=== PATIENT | male | born 1940 | race Caucasian/White ===

== ENCOUNTER 2021-11-27 14:38 | Inpatient (IN) ==
[2021-11-27 15:33] LABS: Basophils % 0.5 %; Eosinophils # 0.1 K/mcL (0.0-0.6); Eosinophils % 2.3 %; Hematocrit 33.9 % (37.5-50.1); Immature Granulocytes % 0.2 % (0-4); Lymphocytes # 1.3 K/mcL (0.6-4.6); Lymphocytes % 23.8 %; Mean Corpuscular HGB Conc 35.4 g/dL (31.6-35.5); Mean Corpuscular Volume 87.6 fL (83.0-100.0); Mean Platelet Volume 8.9 fL (9.4-12.4); Monocytes # 0.5 K/mcL (0.0-1.3); Monocytes % 9.2 %; Neutrophils # 3.5 K/mcL (1.6-8.9); Platelet Count 197 K/mcL (140-400); Red Blood Count 3.87 M/mcL (4.19-5.50); Red Cell Distribution Width 12.4 % (11.5-14.5); White Blood Count 5.5 K/mcL (4.3-11.1)
[2021-11-27 15:42] LABS: BUN/Creatinine Ratio 11 (6-26); Blood Urea Nitrogen 16 mg/dL (8-23); Calcium 8.7 mg/dL (8.6-10.3); Carbon Dioxide 21 mEq/L (23-29); Chloride 103 mEq/L (98-107); Glucose 132 mg/dL (70-105); Osmolality,Calculated 279 (280-300); Sodium 133 mEq/L (136-145); Troponin I < 0.03 ng/mL (< 0.04)
[2021-11-27 16:26] LABS: INR 1.1; Prothrombin Time 12.2 Seconds (9.4-12.1)
[2021-11-27] MEDS ORDERED: Morphine Sulfate 2 MG/ML SYRINGE IVP ONE ×2 (16:53→17:06)
[2021-11-27] MEDS ORDERED: Iopamidol - 370 500 ML MLS IVP ONE (16:54)
[2021-11-27 18:20] LABS: VBG HCO3 24 mEq/L (21-27); VBG PCO2 47 mmHg (41-51); VBG PH 7.32 pH Units (7.32-7.42); VBG PO2 67 mmHg (25-50)
[2021-11-27] MEDS ORDERED: methylPREDNISolone 125 MG/2 ML VIAL IVP ONE (18:30)
[2021-11-27] MEDS ORDERED: Ondansetron 4 MG/2 ML VIAL IVP ONE (18:55)
[2021-11-27] MEDS ORDERED: Ampicillin/Sulbactam 1,500 MG in 0.9 % Sodium Chloride Mini Bag 100 ML IVPB ONE (20:15)
[2021-11-28] MEDS ORDERED: Naloxone 0.4 MG/ML INJ IVP PRN (00:41)
[2021-11-28] MEDS ORDERED: Acetaminophen 325 MG TABLET PO PRN (00:41)
[2021-11-28] MEDS ORDERED: *HR* OxyCODONE Immed Rel 5 MG TABLET PO PRN (00:41)
[2021-11-28] MEDS ORDERED: Melatonin 3 MG TABLET PO PRN (00:41)
[2021-11-28 05:45] LABS: Hematocrit 35.4 % (37.5-50.1); Hemoglobin 12.2 g/dL (12.9-16.9); Immature Granulocytes % 0.3 % (0-4); Lymphocytes # 0.7 K/mcL (0.6-4.6); Lymphocytes % 9.1 %; Mean Corpuscular HGB Conc 34.5 g/dL (31.6-35.5); Mean Corpuscular Hemoglobin 30.3 pg (28.0-33.3); Mean Corpuscular Volume 87.8 fL (83.0-100.0); Monocytes # 0.1 K/mcL (0.0-1.3); Monocytes % 1.8 %; Neutrophils # 6.7 K/mcL (1.6-8.9); Platelet Count 212 K/mcL (140-400); Red Blood Count 4.03 M/mcL (4.19-5.50); Red Cell Distribution Width 12.5 % (11.5-14.5); Segmented Neutrophils % 88.8 %; White Blood Count 7.6 K/mcL (4.3-11.1)
[2021-11-28 06:07] LABS: Calcium 8.8 mg/dL (8.6-10.3); Magnesium 1.6 mg/dL (1.6-2.6); Phosphorous 5.5 mg/dL (2.7-4.5); Potassium 4.3 mEq/L (3.5-5.1)
[2021-11-28] MEDS: Piperacillin/Tazobactam 3.375 GM in 0.9 % Sodium Chloride Mini Bag 100 ML IVPB SCH ×3 (09:36→23:17)
[2021-11-28 13:06] LABS: Uric Acid 7.6 mg/dL (2.3-7.6)
[2021-11-28 13:17] LABS: Immature Reticulocyte % 5.8 % (11.0-38.0); Retculocyte # 0.05 M/mcL (0.05-0.10); Reticulocyte % 1.3 % (1.6-2.8)
[2021-11-28 13:20] LABS: Thyroid Stimulating Hormone 1.033 mcIU/mL (0.340-5.600)
[2021-11-28 13:31] LABS: Vitamin B12 255 pg/mL (250-1100)
[2021-11-28 14:37] LABS: HIV-1&2 Antibody & p24 Ag Nonreactive (Nonreactive)
[2021-11-28] MEDS ORDERED: Dextrose Gel 15 GM/37.5 ML TUBE PO PRN ×2 (14:45)
[2021-11-28] MEDS ORDERED: 0.9 % Sodium Chloride 1,000 ML IVC SCH (14:45)
[2021-11-28] MEDS ORDERED: D5% in Water 1,000 ML IVC PRN (14:45)
[2021-11-28] MEDS ORDERED: *HR* Dextrose 50 % in Water (Syg) 50 ML SYRINGE IVP PRN (14:45)
[2021-11-28] MEDS ORDERED: Nitroglycerin 0.4 MG TAB.SUBL SL PRN (14:48)
[2021-11-28] MEDS ORDERED: 0.9 % Sodium Chloride 500 ML IVC SCH (15:00)
[2021-11-28] MEDS: allopurinoL 100 MG TABLET PO SCH (15:09)
[2021-11-28] MEDS ORDERED: carvediloL 6.25 MG TABLET PO SCH (17:00)
[2021-11-28] MEDS: Insulin LISPRO 300 UNITS/3 ML VIAL SUBQ SCH (17:12)
[2021-11-29] MEDS: Insulin LISPRO 300 UNITS/3 ML VIAL SUBQ SCH ×3 (07:39→17:42)
[2021-11-29] MEDS ORDERED: carvediloL 6.25 MG TABLET PO SCH (09:00)
[2021-11-29] MEDS: Aspirin 81 MG TAB.CHEW PO SCH (09:28)
[2021-11-29] MEDS: Piperacillin/Tazobactam 3.375 GM in 0.9 % Sodium Chloride Mini Bag 100 ML IVPB SCH ×2 (09:28→17:24)
[2021-11-29] MEDS: allopurinoL 100 MG TABLET PO SCH (09:29)
[2021-11-29] MEDS: Cholecalciferol (D-3) 1,000 UNIT (25MCG) TABLET PO SCH (09:29)
[2021-11-29] MEDS: lisinopriL 20 MG TABLET PO SCH (09:29)
[2021-11-29] MEDS: amLODIPine 5 MG TABLET PO SCH (09:38)
[2021-11-29] MEDS: Cyanocobalamin (B-12) 1,000 MCG/ML VIAL SQ SCH (09:39)
[2021-11-29] MEDS ORDERED: Lidocaine -MPF 2% 5 ML VIAL ONE (11:40)
[2021-11-29] MEDS ORDERED: Ondansetron 4 MG/2 ML VIAL ONE (11:40)
[2021-11-29] MEDS ORDERED: *HR* Propofol 200 MG/20 ML VIAL IVP ONE (11:41)
[2021-11-29] MEDS ORDERED: Lidocaine HCL 4 ML Topical Solution (Laryng-O-Jet Kit Sterile Pak) TP ONE (11:43)
[2021-11-29] MEDS ORDERED: *HR* FentaNYL (PF) 100 MCG/2 ML VIAL ONE (11:54)
[2021-11-29] MEDS ORDERED: Gadolinium Contrast Agent (WT Based) IV PRN (14:23)
[2021-11-29 16:52] LABS: Basophils % 0.2 %; Hematocrit 33.2 % (37.5-50.1); Hemoglobin 11.5 g/dL (12.9-16.9); Immature Granulocytes % 0.4 % (0-4); Lymphocytes # 0.4 K/mcL (0.6-4.6); Mean Corpuscular HGB Conc 34.6 g/dL (31.6-35.5); Mean Corpuscular Hemoglobin 30.2 pg (28.0-33.3); Mean Corpuscular Volume 87.1 fL (83.0-100.0); Mean Platelet Volume 9.2 fL (9.4-12.4); Monocytes # 0.1 K/mcL (0.0-1.3); Monocytes % 1.9 %; Neutrophils # 4.8 K/mcL (1.6-8.9); Platelet Count 204 K/mcL (140-400); Red Blood Count 3.81 M/mcL (4.19-5.50); Red Cell Distribution Width 12.6 % (11.5-14.5); Segmented Neutrophils % 89.5 %; White Blood Count 5.4 K/mcL (4.3-11.1)
[2021-11-29 17:17] LABS: Albumin 3.5 g/dL (3.5-5.7); Albumin/Globulin Ratio 1.5 (1.1-2.2); Bilirubin,Total 0.5 mg/dL (0.3-1.0); Calcium 8.5 mg/dL (8.6-10.3); Globulin 2.3 g/dL (2.4-3.5); Potassium 4.1 mEq/L (3.5-5.1); Total Protein 5.8 g/dL (6.4-8.9)
[2021-11-29] MEDS ORDERED: Ipratropium/Albuterol Neb 3 ML IH PRN (17:23)
[2021-11-29] MEDS: carvediloL 6.25 MG TABLET PO SCH (17:24)
[2021-11-29] MEDS ORDERED: GADOBUTROL 30 MMOL/30 ML VIAL IVP ONE (17:45)
[2021-11-30] MEDS: Piperacillin/Tazobactam 3.375 GM in 0.9 % Sodium Chloride Mini Bag 100 ML IVPB SCH ×4 (00:32→23:36)
[2021-11-30] MEDS: amLODIPine 5 MG TABLET PO SCH (09:07)
[2021-11-30] MEDS: allopurinoL 100 MG TABLET PO SCH (09:08)
[2021-11-30] MEDS: carvediloL 6.25 MG TABLET PO SCH ×2 (09:09→17:36)
[2021-11-30] MEDS: Cholecalciferol (D-3) 1,000 UNIT (25MCG) TABLET PO SCH (09:10)
[2021-11-30] MEDS: lisinopriL 20 MG TABLET PO SCH (09:10)
[2021-11-30] MEDS: Aspirin 81 MG TAB.CHEW PO SCH (09:10)
[2021-11-30] MEDS: Insulin LISPRO 300 UNITS/3 ML VIAL SUBQ SCH ×3 (09:11→17:27)
[2021-11-30] MEDS: Cyanocobalamin (B-12) 1,000 MCG/ML VIAL SQ SCH (09:39)
[2021-11-30 10:26] LABS: Calcium 8.3 mg/dL (8.6-10.3); Potassium 3.7 mEq/L (3.5-5.1); Uric Acid 5.8 mg/dL (2.3-7.6)
[2021-11-30 10:27] LABS: Albumin 3.2 g/dL (3.5-5.7); Albumin/Globulin Ratio 1.6 (1.1-2.2); Bilirubin,Total 0.5 mg/dL (0.3-1.0); Calcium 8.3 mg/dL (8.6-10.3); Potassium 3.9 mEq/L (3.5-5.1); Total Protein 5.2 g/dL (6.4-8.9)
[2021-11-30 10:34] LABS: Basophils % 0.2 %; Eosinophils % 0.2 %; Hematocrit 30.5 % (37.5-50.1); Hemoglobin 10.5 g/dL (12.9-16.9); Immature Granulocytes % 0.4 % (0-4); Lymphocytes % 19.1 %; Mean Corpuscular HGB Conc 34.4 g/dL (31.6-35.5); Mean Corpuscular Hemoglobin 30.2 pg (28.0-33.3); Mean Corpuscular Volume 87.6 fL (83.0-100.0); Mean Platelet Volume 9.1 fL (9.4-12.4); Monocytes # 0.3 K/mcL (0.0-1.3); Monocytes % 6.3 %; Neutrophils # 3.8 K/mcL (1.6-8.9); Platelet Count 210 K/mcL (140-400); Red Blood Count 3.48 M/mcL (4.19-5.50); Red Cell Distribution Width 12.6 % (11.5-14.5); Segmented Neutrophils % 73.8 %; White Blood Count 5.1 K/mcL (4.3-11.1)
[2021-11-30] MEDS: Ondansetron ODT 4 MG TAB.RAPDIS SL PRN (10:46)
[2021-11-30] MEDS ORDERED: Metoclopramide 10 MG/2 ML VIAL IVP ONE (11:27)
[2021-11-30] MEDS: Fluticasone Propionate Nasal 50 MCG/SPRAY BOTTLE NS SCH (14:15)
[2021-11-30] MEDS: hydrALAZINE 25 MG TABLET PO SCH ×2 (19:29→23:36)
[2021-12-01 04:44] LABS: Hemoglobin 10.6 g/dL (12.9-16.9); Immature Granulocytes % 0.2 % (0-4); Lymphocytes % 24.8 %; Mean Corpuscular HGB Conc 35.3 g/dL (31.6-35.5); Mean Corpuscular Hemoglobin 30.5 pg (28.0-33.3); Mean Corpuscular Volume 86.2 fL (83.0-100.0); Mean Platelet Volume 9.2 fL (9.4-12.4); Platelet Count 177 K/mcL (140-400); Red Blood Count 3.48 M/mcL (4.19-5.50); Red Cell Distribution Width 12.4 % (11.5-14.5); Segmented Neutrophils % 63.9 %; White Blood Count 5.1 K/mcL (4.3-11.1)
[2021-12-01 04:45] LABS: Basophils % 0.4 %; Eosinophils # 0.1 K/mcL (0.0-0.6); Eosinophils % 1.6 %; Lymphocytes # 1.3 K/mcL (0.6-4.6); Monocytes # 0.5 K/mcL (0.0-1.3); Monocytes % 9.1 %; Neutrophils # 3.3 K/mcL (1.6-8.9)
[2021-12-01 05:05] LABS: Calcium 7.8 mg/dL (8.6-10.3); Phosphorous 2.5 mg/dL (2.7-4.5); Potassium 3.3 mEq/L (3.5-5.1); Uric Acid 4.8 mg/dL (2.3-7.6)
[2021-12-01 05:06] LABS: Albumin/Globulin Ratio 1.6 (1.1-2.2); Bilirubin,Total 0.6 mg/dL (0.3-1.0); Calcium 7.7 mg/dL (8.6-10.3); Globulin 1.9 g/dL (2.4-3.5); Potassium 3.3 mEq/L (3.5-5.1); Total Protein 4.9 g/dL (6.4-8.9)
[2021-12-01] MEDS: *HR* Enoxaparin 30 MG/0.3 ML SYRINGE SQ SCH (06:46)
[2021-12-01] MEDS: Cholecalciferol (D-3) 1,000 UNIT (25MCG) TABLET PO SCH (08:16)
[2021-12-01] MEDS: hydrALAZINE 25 MG TABLET PO SCH ×2 (08:16→17:48)
[2021-12-01] MEDS: Aspirin 81 MG TAB.CHEW PO SCH (08:16)
[2021-12-01] MEDS: carvediloL 6.25 MG TABLET PO SCH ×2 (08:16→17:47)
[2021-12-01] MEDS: allopurinoL 100 MG TABLET PO SCH (08:17)
[2021-12-01] MEDS: amLODIPine 5 MG TABLET PO SCH (08:17)
[2021-12-01] MEDS: lisinopriL 20 MG TABLET PO SCH (08:17)
[2021-12-01] MEDS: Piperacillin/Tazobactam 3.375 GM in 0.9 % Sodium Chloride Mini Bag 100 ML IVPB SCH (08:18)
[2021-12-01] MEDS: Insulin LISPRO 300 UNITS/3 ML VIAL SUBQ SCH ×3 (08:20→17:45)
[2021-12-01] MEDS: Cyanocobalamin (B-12) 1,000 MCG/ML VIAL SQ SCH (13:01)
[2021-12-01] MEDS: Fluticasone Propionate Nasal 50 MCG/SPRAY BOTTLE NS SCH (13:39)
[2021-12-02] MEDS: hydrALAZINE 25 MG TABLET PO SCH ×3 (00:15→16:18)
[2021-12-02 01:17] LABS: Basophils % 0.4 %; Eosinophils # 0.1 K/mcL (0.0-0.6); Eosinophils % 2.9 %; Hematocrit 28.9 % (37.5-50.1); Hemoglobin 10.5 g/dL (12.9-16.9); Immature Granulocytes % 0.4 % (0-4); Lymphocytes % 21.5 %; Mean Corpuscular HGB Conc 36.3 g/dL (31.6-35.5); Mean Corpuscular Hemoglobin 31.1 pg (28.0-33.3); Mean Corpuscular Volume 85.5 fL (83.0-100.0); Mean Platelet Volume 9.1 fL (9.4-12.4); Monocytes # 0.4 K/mcL (0.0-1.3); Monocytes % 9.3 %; Neutrophils # 3.1 K/mcL (1.6-8.9); Platelet Count 180 K/mcL (140-400); Red Blood Count 3.38 M/mcL (4.19-5.50); Red Cell Distribution Width 12.5 % (11.5-14.5); Segmented Neutrophils % 65.5 %; White Blood Count 4.8 K/mcL (4.3-11.1)
[2021-12-02 01:34] LABS: Calcium 8.2 mg/dL (8.6-10.3); Phosphorous 1.8 mg/dL (2.7-4.5); Potassium 3.6 mEq/L (3.5-5.1); Uric Acid 4.4 mg/dL (2.3-7.6)
[2021-12-02 01:35] LABS: Albumin/Globulin Ratio 1.6 (1.1-2.2); Bilirubin,Total 0.5 mg/dL (0.3-1.0); Calcium 8.2 mg/dL (8.6-10.3); Globulin 1.9 g/dL (2.4-3.5); Potassium 3.6 mEq/L (3.5-5.1); Total Protein 4.9 g/dL (6.4-8.9)
[2021-12-02] MEDS: *HR* Enoxaparin 30 MG/0.3 ML SYRINGE SQ SCH (05:26)
[2021-12-02 07:26] LABS: Bilirubin,Urine Negative (Negative); Blood,Urine Negative (Negative); Clarity,Urine Clear (Clear); Color,Urine Light-Yellow (Yellow); Glucose,Urine (UA) Normal (Normal); Ketones,Urine Negative (Negative); Leukocyte Esterase,Urine Negative (Negative); Mucus,Urine Few per lpf (None-Few); Nitrite,Urine Negative (Negative); Protein,Urine 50 mg/dL (Neg-Trace); RBC,Urine 0-3 per hpf (0-3); Specific Gravity,Urine 1.017 (1.010-1.025); Urobilinogen,Urine Normal (Normal); WBC,Urine 0-3 per hpf (0-3)
[2021-12-02] MEDS: Insulin LISPRO 300 UNITS/3 ML VIAL SUBQ SCH ×3 (07:55→16:35)
[2021-12-02] MEDS: Cholecalciferol (D-3) 1,000 UNIT (25MCG) TABLET PO SCH (08:22)
[2021-12-02] MEDS: amLODIPine 5 MG TABLET PO SCH (08:22)
[2021-12-02] MEDS: allopurinoL 100 MG TABLET PO SCH (08:22)
[2021-12-02] MEDS: Aspirin 81 MG TAB.CHEW PO SCH (08:23)
[2021-12-02] MEDS: lisinopriL 20 MG TABLET PO SCH (08:23)
[2021-12-02] MEDS: carvediloL 6.25 MG TABLET PO SCH ×2 (08:23→16:18)
[2021-12-02 08:37] LABS: Sodium, Urine 77.2 mEq/L
[2021-12-02] MEDS: Cyanocobalamin (B-12) 1,000 MCG/ML VIAL SQ SCH (09:07)
[2021-12-02] MEDS: Fluticasone Propionate Nasal 50 MCG/SPRAY BOTTLE NS SCH (11:19)
[2021-12-02] MEDS ORDERED: Pantoprazole 40 MG VIAL IVP ONE (14:15)
[2021-12-02 15:19] LABS: Hematocrit 33.5 % (37.5-50.1); Hemoglobin 11.9 g/dL (12.9-16.9)
[2021-12-02] MEDS ORDERED: Pantoprazole 40 MG VIAL ONE (16:10)
[2021-12-02] MEDS: Pantoprazole 40 MG VIAL IVP SCH (16:16)
[2021-12-02 23:14] LABS: Hematocrit 30.2 % (37.5-50.1)
[2021-12-03] MEDS: hydrALAZINE 25 MG TABLET PO SCH ×3 (00:35→17:40)
[2021-12-03] MEDS: *HR* Enoxaparin 30 MG/0.3 ML SYRINGE SQ SCH (06:12)
[2021-12-03] MEDS: Insulin LISPRO 300 UNITS/3 ML VIAL SUBQ SCH ×3 (08:38→17:41)
[2021-12-03 09:39] LABS: Basophils % 0.6 %; Eosinophils # 0.2 K/mcL (0.0-0.6); Eosinophils % 3.6 %; Hematocrit 32.8 % (37.5-50.1); Hemoglobin 11.6 g/dL (12.9-16.9); Immature Granulocytes % 0.2 % (0-4); Lymphocytes # 0.7 K/mcL (0.6-4.6); Lymphocytes % 13.2 %; Mean Corpuscular HGB Conc 35.4 g/dL (31.6-35.5); Mean Corpuscular Hemoglobin 30.6 pg (28.0-33.3); Mean Corpuscular Volume 86.5 fL (83.0-100.0); Mean Platelet Volume 9.6 fL (9.4-12.4); Monocytes # 0.5 K/mcL (0.0-1.3); Monocytes % 9.3 %; Neutrophils # 3.6 K/mcL (1.6-8.9); Platelet Count 181 K/mcL (140-400); Red Blood Count 3.79 M/mcL (4.19-5.50); Red Cell Distribution Width 12.5 % (11.5-14.5); Segmented Neutrophils % 73.1 %; White Blood Count 4.9 K/mcL (4.3-11.1)
[2021-12-03 09:49] LABS: Calcium 8.6 mg/dL (8.6-10.3); Phosphorous 1.9 mg/dL (2.7-4.5); Potassium 3.6 mEq/L (3.5-5.1); Uric Acid 4.8 mg/dL (2.3-7.6)
[2021-12-03] MEDS: Pantoprazole 40 MG VIAL IVP SCH (09:49)
[2021-12-03] MEDS: carvediloL 6.25 MG TABLET PO SCH ×2 (09:49→17:40)
[2021-12-03] MEDS: amLODIPine 5 MG TABLET PO SCH (09:49)
[2021-12-03] MEDS: Cholecalciferol (D-3) 1,000 UNIT (25MCG) TABLET PO SCH (09:50)
[2021-12-03] MEDS: allopurinoL 100 MG TABLET PO SCH (09:50)
[2021-12-03] MEDS: lisinopriL 20 MG TABLET PO SCH (09:50)
[2021-12-03 09:51] LABS: Albumin 3.1 g/dL (3.5-5.7); Albumin/Globulin Ratio 1.5 (1.1-2.2); Bilirubin,Total 0.6 mg/dL (0.3-1.0); Calcium 8.5 mg/dL (8.6-10.3); Globulin 2.1 g/dL (2.4-3.5); Potassium 3.6 mEq/L (3.5-5.1); Total Protein 5.2 g/dL (6.4-8.9)
[2021-12-03] MEDS: Fluticasone Propionate Nasal 50 MCG/SPRAY BOTTLE NS SCH (09:59)
[2021-12-03] MEDS: Cyanocobalamin (B-12) 1,000 MCG/ML VIAL SQ SCH (10:40)
[2021-12-04] MEDS: hydrALAZINE 25 MG TABLET PO SCH ×3 (01:37→15:54)
[2021-12-04 05:50] LABS: Basophils % 0.4 %; Eosinophils # 0.2 K/mcL (0.0-0.6); Eosinophils % 3.3 %; Hematocrit 31.4 % (37.5-50.1); Hemoglobin 10.9 g/dL (12.9-16.9); Immature Granulocytes % 0.4 % (0-4); Lymphocytes # 0.6 K/mcL (0.6-4.6); Lymphocytes % 11.8 %; Mean Corpuscular HGB Conc 34.7 g/dL (31.6-35.5); Mean Corpuscular Hemoglobin 29.9 pg (28.0-33.3); Mean Platelet Volume 9.6 fL (9.4-12.4); Monocytes # 0.5 K/mcL (0.0-1.3); Monocytes % 8.7 %; Neutrophils # 4.1 K/mcL (1.6-8.9); Platelet Count 190 K/mcL (140-400); Red Blood Count 3.65 M/mcL (4.19-5.50); Red Cell Distribution Width 12.5 % (11.5-14.5); Segmented Neutrophils % 75.4 %; White Blood Count 5.4 K/mcL (4.3-11.1)
[2021-12-04 06:14] LABS: Calcium 8.5 mg/dL (8.6-10.3); Phosphorous 2.4 mg/dL (2.7-4.5); Potassium 3.5 mEq/L (3.5-5.1); Uric Acid 5.7 mg/dL (2.3-7.6)
[2021-12-04 06:15] LABS: Albumin/Globulin Ratio 1.4 (1.1-2.2); Bilirubin,Total 0.6 mg/dL (0.3-1.0); Calcium 8.5 mg/dL (8.6-10.3); Globulin 2.1 g/dL (2.4-3.5); Potassium 3.5 mEq/L (3.5-5.1); Total Protein 5.1 g/dL (6.4-8.9)
[2021-12-04] MEDS: *HR* Enoxaparin 40 MG/0.4 ML SYRINGE SQ SCH (06:25)
[2021-12-04] MEDS ORDERED: *HR* Metoprolol 5 MG/5 ML VIAL IVP ONE (06:43)
[2021-12-04] MEDS ORDERED: Morphine Sulfate 2 MG/ML SYRINGE IVP ONE (06:44)
[2021-12-04 07:11] LABS: Troponin I 0.03 ng/mL (< 0.04)
[2021-12-04] MEDS: carvediloL 6.25 MG TABLET PO SCH ×2 (07:52→15:54)
[2021-12-04] MEDS: Cholecalciferol (D-3) 1,000 UNIT (25MCG) TABLET PO SCH (07:52)
[2021-12-04] MEDS: allopurinoL 100 MG TABLET PO SCH (07:52)
[2021-12-04] MEDS: lisinopriL 20 MG TABLET PO SCH (07:52)
[2021-12-04] MEDS: amLODIPine 5 MG TABLET PO SCH (07:52)
[2021-12-04] MEDS: Insulin LISPRO 300 UNITS/3 ML VIAL SUBQ SCH ×3 (07:53→18:51)
[2021-12-04] MEDS: Fluticasone Propionate Nasal 50 MCG/SPRAY BOTTLE NS SCH (07:53)
[2021-12-04] MEDS: Pantoprazole 40 MG VIAL IVP SCH (07:54)
[2021-12-04] MEDS: Cyanocobalamin (B-12) 1,000 MCG/ML VIAL SQ SCH (07:54)
[2021-12-04] MEDS: Ondansetron ODT 4 MG TAB.RAPDIS SL PRN (08:53)
[2021-12-04] MEDS ORDERED: Fosaprepitant Dimeglumine 150 MG in 0.9 % Sodium Chloride 250 ML IVPB ONE (10:00)
[2021-12-04] MEDS ORDERED: Albuterol 2.5 MG/3 ML NEBULIZER IH PRN (11:00)
[2021-12-04] MEDS ORDERED: *HR* LORazepam 2 MG/ML VIAL IVP PRN (11:00)
[2021-12-04] MEDS ORDERED: Dexamethasone Sodium Phos/PF 10 MG/ML VIAL IVP ONE (11:00)
[2021-12-04] MEDS ORDERED: Prochlorperazine 10 MG/2 ML VIAL IVP PRN (11:00)
[2021-12-04] MEDS ORDERED: EPINEPHrine 1 MG/ML VIAL SQ PRN (11:00)
[2021-12-04] MEDS ORDERED: Hydrocortisone Sodium Succ 100 MG/2 ML VIAL IVP PRN (11:00)
[2021-12-04] MEDS ORDERED: 0.9 % Sodium Chloride 500 ML IVC SCH (11:00)
[2021-12-04] MEDS ORDERED: Famotidine 20 MG/2 ML VIAL IVP PRN (11:00)
[2021-12-04] MEDS ORDERED: ETOPOSIDE IVPB SCH (11:30)
[2021-12-04] MEDS ORDERED: SODIUM CHLORIDE EXCEL BG 0.9% IVPB SCH (11:30)
[2021-12-04] MEDS ORDERED: CARBOPLATIN IVPB SCH (12:30)
[2021-12-04] MEDS ORDERED: SODIUM CHLORIDE 0.9% IVPB SCH (12:30)
[2021-12-04] MEDS ORDERED: allopurinoL 100 MG TABLET PO ONE (14:00)
[2021-12-04] MEDS: Isosorbide MONOnitrate (24 HR) 30 MG TAB.ER.24H PO SCH (15:55)
[2021-12-05] MEDS ORDERED: 0.9 % Sodium Chloride 500 ML IVC SCH
[2021-12-05] MEDS: Insulin LISPRO 300 UNITS/3 ML VIAL SUBQ SCH ×3 (08:54→17:30)
[2021-12-05] MEDS: carvediloL 6.25 MG TABLET PO SCH ×2 (09:20→17:31)
[2021-12-05] MEDS: hydrALAZINE 25 MG TABLET PO SCH ×2 (09:20→17:32)
[2021-12-05 10:05] LABS: Hematocrit 27.6 % (37.5-50.1); Hemoglobin 9.7 g/dL (12.9-16.9); Lymphocytes # 0.4 K/mcL (0.6-4.6); Lymphocytes % 7.3 %; Mean Corpuscular HGB Conc 35.1 g/dL (31.6-35.5); Mean Corpuscular Hemoglobin 30.2 pg (28.0-33.3); Mean Platelet Volume 9.7 fL (9.4-12.4); Monocytes # 0.3 K/mcL (0.0-1.3); Monocytes % 5.6 %; Neutrophils # 4.5 K/mcL (1.6-8.9); Platelet Count 207 K/mcL (140-400); Red Blood Count 3.21 M/mcL (4.19-5.50); Red Cell Distribution Width 12.5 % (11.5-14.5); Segmented Neutrophils % 86.1 %; White Blood Count 5.2 K/mcL (4.3-11.1)
[2021-12-05 10:17] LABS: Albumin 3.1 g/dL (3.5-5.7); Albumin/Globulin Ratio 1.4 (1.1-2.2); Bilirubin,Total 0.5 mg/dL (0.3-1.0); Calcium 8.4 mg/dL (8.6-10.3); Globulin 2.2 g/dL (2.4-3.5); Phosphorous 5.1 mg/dL (2.7-4.5); Potassium 4.1 mEq/L (3.5-5.1); Total Protein 5.3 g/dL (6.4-8.9); Uric Acid 7.6 mg/dL (2.3-7.6)
[2021-12-05] MEDS: amLODIPine 5 MG TABLET PO SCH (11:00)
[2021-12-05] MEDS: lisinopriL 20 MG TABLET PO SCH (11:01)
[2021-12-05] MEDS: Isosorbide MONOnitrate (24 HR) 30 MG TAB.ER.24H PO SCH (11:02)
[2021-12-05] MEDS: Cholecalciferol (D-3) 1,000 UNIT (25MCG) TABLET PO SCH (11:02)
[2021-12-05] MEDS: allopurinoL 100 MG TABLET PO SCH (11:02)
[2021-12-05] MEDS: Pantoprazole 40 MG VIAL IVP SCH (11:02)
[2021-12-05] MEDS: Cyanocobalamin (B-12) 1,000 MCG/ML VIAL SQ SCH (11:03)
[2021-12-05] MEDS: Fluticasone Propionate Nasal 50 MCG/SPRAY BOTTLE NS SCH (11:10)
[2021-12-05] MEDS ORDERED: 0.9 % Sodium Chloride 1,000 ML IV ONE (11:30)
[2021-12-05] MEDS ORDERED: *HR* LORazepam 2 MG/ML VIAL IVP PRN (12:30)
[2021-12-05] MEDS ORDERED: Famotidine 20 MG/2 ML VIAL IVP PRN (12:30)
[2021-12-05] MEDS ORDERED: Hydrocortisone Sodium Succ 100 MG/2 ML VIAL IVP PRN (12:30)
[2021-12-05] MEDS ORDERED: SODIUM CHLORIDE EXCEL BG 0.9% IVPB ONE (12:30)
[2021-12-05] MEDS ORDERED: ETOPOSIDE IVPB ONE (12:30)
[2021-12-05] MEDS ORDERED: EPINEPHrine 1 MG/ML VIAL SQ PRN (12:30)
[2021-12-05] MEDS ORDERED: Albuterol 2.5 MG/3 ML NEBULIZER IH PRN (12:30)
[2021-12-05] MEDS ORDERED: 0.9 % Sodium Chloride 1,000 ML IVC SCH (16:15)
[2021-12-05] MEDS: Ringers Solution, Lactated 1,000 ML IVC SCH (17:31)
[2021-12-06] MEDS: hydrALAZINE 25 MG TABLET PO SCH ×4 (00:41→16:41)
[2021-12-06] MEDS: Ringers Solution, Lactated 1,000 ML IVC SCH ×3 (01:44→18:55)
[2021-12-06] MEDS: *HR* Enoxaparin 40 MG/0.4 ML SYRINGE SQ SCH ×2 (05:25)
[2021-12-06 05:53] LABS: Eosinophils % 0.2 %; Hematocrit 24.8 % (37.5-50.1); Hemoglobin 8.8 g/dL (12.9-16.9); Immature Granulocytes % 0.9 % (0-4); Lymphocytes # 0.6 K/mcL (0.6-4.6); Lymphocytes % 12.1 %; Mean Corpuscular HGB Conc 35.5 g/dL (31.6-35.5); Mean Corpuscular Hemoglobin 31.2 pg (28.0-33.3); Mean Corpuscular Volume 87.9 fL (83.0-100.0); Mean Platelet Volume 9.6 fL (9.4-12.4); Monocytes # 0.3 K/mcL (0.0-1.3); Monocytes % 6.1 %; Neutrophils # 3.7 K/mcL (1.6-8.9); Platelet Count 169 K/mcL (140-400); Red Blood Count 2.82 M/mcL (4.19-5.50); Red Cell Distribution Width 12.8 % (11.5-14.5); Segmented Neutrophils % 80.7 %; White Blood Count 4.6 K/mcL (4.3-11.1)
[2021-12-06 06:12] LABS: Albumin 2.7 g/dL (3.5-5.7); Albumin/Globulin Ratio 1.5 (1.1-2.2); Bilirubin,Total 0.3 mg/dL (0.3-1.0); Calcium 7.8 mg/dL (8.6-10.3); Globulin 1.8 g/dL (2.4-3.5); Phosphorous 3.7 mg/dL (2.7-4.5); Potassium 3.3 mEq/L (3.5-5.1); Total Protein 4.5 g/dL (6.4-8.9); Uric Acid 7.5 mg/dL (2.3-7.6)
[2021-12-06] MEDS: Insulin LISPRO 300 UNITS/3 ML VIAL SUBQ SCH ×3 (07:51→17:13)
[2021-12-06] MEDS: Cyanocobalamin (B-12) 1,000 MCG/ML VIAL SQ SCH (09:27)
[2021-12-06] MEDS: Cholecalciferol (D-3) 1,000 UNIT (25MCG) TABLET PO SCH (09:27)
[2021-12-06] MEDS: allopurinoL 100 MG TABLET PO SCH (09:27)
[2021-12-06] MEDS: Isosorbide MONOnitrate (24 HR) 30 MG TAB.ER.24H PO SCH (09:27)
[2021-12-06] MEDS: carvediloL 6.25 MG TABLET PO SCH ×2 (09:27→16:40)
[2021-12-06] MEDS: Pantoprazole 40 MG VIAL IVP SCH (09:27)
[2021-12-06] MEDS: amLODIPine 5 MG TABLET PO SCH (09:27)
[2021-12-06] MEDS: Fluticasone Propionate Nasal 50 MCG/SPRAY BOTTLE NS SCH (09:43)
[2021-12-06] MEDS: Amoxicillin/Clavulanate 500 MG TABLET PO SCH (16:41)
[2021-12-07] MEDS: hydrALAZINE 25 MG TABLET PO SCH ×3 (00:40→17:05)
[2021-12-07 04:58] LABS: Hematocrit 28.4 % (37.5-50.1); Mean Corpuscular HGB Conc 35.2 g/dL (31.6-35.5); Mean Corpuscular Hemoglobin 30.6 pg (28.0-33.3); Mean Corpuscular Volume 86.9 fL (83.0-100.0); Mean Platelet Volume 9.5 fL (9.4-12.4); Platelet Count 180 K/mcL (140-400); Red Blood Count 3.27 M/mcL (4.19-5.50); White Blood Count 3.9 K/mcL (4.3-11.1)
[2021-12-07 05:15] LABS: Potassium 3.5 mEq/L (3.5-5.1)
[2021-12-07] MEDS: Ringers Solution, Lactated 1,000 ML IVC SCH ×3 (05:34→14:24)
[2021-12-07] MEDS: *HR* Enoxaparin 40 MG/0.4 ML SYRINGE SQ SCH (05:36)
[2021-12-07] MEDS: Insulin LISPRO 300 UNITS/3 ML VIAL SUBQ SCH ×3 (08:50→17:05)
[2021-12-07] MEDS: Isosorbide MONOnitrate (24 HR) 30 MG TAB.ER.24H PO SCH (09:19)
[2021-12-07] MEDS: allopurinoL 100 MG TABLET PO SCH (09:19)
[2021-12-07] MEDS: Cholecalciferol (D-3) 1,000 UNIT (25MCG) TABLET PO SCH (09:19)
[2021-12-07] MEDS: Fluticasone Propionate Nasal 50 MCG/SPRAY BOTTLE NS SCH (09:19)
[2021-12-07] MEDS: amLODIPine 5 MG TABLET PO SCH (09:19)
[2021-12-07] MEDS: carvediloL 6.25 MG TABLET PO SCH ×2 (09:19→17:05)
[2021-12-07] MEDS: Amoxicillin/Clavulanate 500 MG TABLET PO SCH ×2 (09:19→17:05)
[2021-12-08] MEDS: hydrALAZINE 25 MG TABLET PO SCH ×3 (06:55→16:32)
[2021-12-08] MEDS: *HR* Enoxaparin 40 MG/0.4 ML SYRINGE SQ SCH (06:57)
[2021-12-08] MEDS: Ringers Solution, Lactated 1,000 ML IVC SCH ×3 (06:57→21:29)
[2021-12-08] MEDS: Insulin LISPRO 300 UNITS/3 ML VIAL SUBQ SCH ×3 (08:09→17:00)
[2021-12-08] MEDS: amLODIPine 5 MG TABLET PO SCH (08:59)
[2021-12-08] MEDS: Amoxicillin/Clavulanate 500 MG TABLET PO SCH ×2 (08:59→16:33)
[2021-12-08] MEDS: allopurinoL 100 MG TABLET PO SCH (09:00)
[2021-12-08] MEDS: Isosorbide MONOnitrate (24 HR) 30 MG TAB.ER.24H PO SCH (09:00)
[2021-12-08] MEDS: Fluticasone Propionate Nasal 50 MCG/SPRAY BOTTLE NS SCH (09:00)
[2021-12-08] MEDS: Cholecalciferol (D-3) 1,000 UNIT (25MCG) TABLET PO SCH (09:00)
[2021-12-08] MEDS: carvediloL 6.25 MG TABLET PO SCH ×2 (09:00→16:33)
[2021-12-08 18:17] LABS: Calcium 8.1 mg/dL (8.6-10.3); Potassium 3.5 mEq/L (3.5-5.1)
[2021-12-09] MEDS: hydrALAZINE 25 MG TABLET PO SCH ×2 (02:16→11:32)
[2021-12-09 04:05] LABS: Hematocrit 24.2 % (37.5-50.1); Hemoglobin 8.6 g/dL (12.9-16.9); Mean Corpuscular HGB Conc 35.5 g/dL (31.6-35.5); Mean Corpuscular Hemoglobin 30.7 pg (28.0-33.3); Mean Corpuscular Volume 86.4 fL (83.0-100.0); Mean Platelet Volume 9.8 fL (9.4-12.4); Platelet Count 143 K/mcL (140-400); Red Cell Distribution Width 12.7 % (11.5-14.5); White Blood Count 3.3 K/mcL (4.3-11.1)
[2021-12-09 04:22] LABS: Calcium 7.8 mg/dL (8.6-10.3); Potassium 3.2 mEq/L (3.5-5.1)
[2021-12-09] MEDS ORDERED: *HR* Enoxaparin 30 MG/0.3 ML SYRINGE SQ SCH (06:00)
[2021-12-09 08:05] VITALS: O2SAT 94
[2021-12-09] MEDS: Insulin LISPRO 300 UNITS/3 ML VIAL SUBQ SCH ×2 (08:48→11:38)
[2021-12-09 11:25] VITALS: BP 200/81; PULSE 84; TEMP 97.8
[2021-12-09] MEDS: amLODIPine 5 MG TABLET PO SCH (11:31)
[2021-12-09] MEDS: Isosorbide MONOnitrate (24 HR) 30 MG TAB.ER.24H PO SCH (11:31)
[2021-12-09] MEDS: allopurinoL 100 MG TABLET PO SCH (11:32)
[2021-12-09] MEDS: Cholecalciferol (D-3) 1,000 UNIT (25MCG) TABLET PO SCH (11:32)
[2021-12-09] MEDS: Amoxicillin/Clavulanate 500 MG TABLET PO SCH (11:32)
[2021-12-09] MEDS: carvediloL 6.25 MG TABLET PO SCH (11:32)
[2021-12-09] MEDS: Fluticasone Propionate Nasal 50 MCG/SPRAY BOTTLE NS SCH (11:39)
== END 2021-12-09 12:30 | disposition home or self-care (01) | DRG 163 ==
LOC: EMEROOARM 14:38 → 4WAOSI 14:38 → SUATTDRO 23:18 → 4WAOSI 23:57 → SUATTDRO 11-28 10:05 → 3ANU 12-03 13:00
PROVIDERS: ADMIT Internal Medicine; ATTEND Internal Medicine